=== PATIENT | female | born 1985 | race Two or more races ===

== ENCOUNTER 2021-04-02 00:24 | Emergency (ER) | payer OTHER ==
[~2021-04-02] VITALS: Ht 165.1 cm; Wt 40.9 kg
[2021-04-02] MEDS ORDERED: PERMETHRIN 5% 60 GM CREAM TP ONE (03:30)
[2021-04-02 04:29] VITALS: BP 110/68
== END 2021-04-02 04:27 | disposition home or self-care (01) ==
LOC: EMS 00:27
DX: S60.562A Insect bite (nonvenomous) of left hand, initial encounter (principal); S60.561A Insect bite (nonvenomous) of right hand, initial encounter; F41.9 Anxiety disorder, unspecified; F19.10 Other psychoactive substance abuse, uncomplicated; F20.9 Schizophrenia, unspecified; F17.290 Nicotine dependence, other tobacco product, uncomplicated; W57.XXXA Bitten or stung by nonvenomous insect and other nonvenomous arthropods, initial encounter; Y93.89 Activity, other specified; Y92.89 Other specified places as the place of occurrence of the external cause; Y99.8 Other external cause status
CPT/HCPCS: 99282; Z7502; Z7610